=== PATIENT | female | born 2000 | race Caucasian/White ===

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

== ENCOUNTER 2019-03-22 14:55 | Emergency (ER) | payer BC ==
[2019-03-22 15:12] VITALS: BP 122/72
--- NOTE | 2019-03-22 15:23 | UC ---
Ear Complaint HPI - HPI Summary HPI Summary: Patient is a 19yo female presenting with c/o R ear pain and "feeling like ear needs to pop" x3 days. Patient notes decreased hearing in R ear. Notes getting over recent cold symptoms. Denies L ear pain. Denies drainage from the ear. Denies tinnitus. Denies nasal congestion. Denies cough and sore throat. Denies fever and chills. Notes history of recurrent ear infections with need for tubes b/l. - History of Current Complaint Chief Complaint: UCEar Stated Complaint: RIGHT EAR Hx Obtained From: Patient Hx Last Menstrual Period: 03/21/19 Onset/Duration: Gradual Onset, Lasting Days Severity Initially: Mild Severity Currently: Moderate Pain Intensity: 4 Pain Scale Used: 0-10 Numeric - Allergies/Home Medications Allergies/Adverse Reactions: Allergies Allergy/AdvReac Type Severity Reaction Status Date / Time No Known Allergies Allergy Verified 03/22/19 15:12 Home Medications: Home Medications Etonogest/Eth.estradiol (Nf) [Nuvaring Vaginal Ring] 1 each VAGINAL .SEE COMMENTS 03/22/19 [History Confirmed 03/22/19] FLUoxetine CAP* [PROzac CAP*] 20 mg PO DAILY 03/22/19 [History Confirmed ] Methylphenidate HCl [Concerta] 36 mg PO DAILY 03/22/19 [History Confirmed ] PMH/Surg Hx/FS Hx/Imm Hx Previously Healthy: Yes - Surgical History Surgical History: Yes Surgery Procedure, Year, and Place: APPENDECTOMY - Family History Known Family History: Positive: Cardiac Disease - Social History Alcohol Use: Occasionally Substance Use Type: None Smoking Status (MU): Never Smoked Tobacco Have You Smoked in the Last Year: No - Immunization History Most Recent Influenza Vaccination: NO 2017 Vaccination Up to Date: Yes Review of Systems All Other Systems Reviewed And Are Negative: Yes Constitutional: Positive: Negative ENT: Positive: Ear Ache - right. Negative: Sore Throat, Nasal Discharge, Sinus Congestion Respiratory: Positive: Negative Cardiovascular: Positive: Negative Neurological: Positive: Negative Physical Exam Triage Information Reviewed: Yes Appearance: Well-Appearing, No Pain Distress, Well-Nourished Vital Signs: Initial Vital Signs Temp 98.6 F 03/22/19 15:09 Pulse 99 03/22/19 15:09 Resp 15 03/22/19 15:09 BP 122/72 03/22/19 15:09 Pulse Ox 100 03/22/19 15:09 Vital Signs Reviewed: Yes Eyes: Positive: Conjunctiva Clear ENT: Positive: Hearing grossly normal, Pharynx normal, TM bulging - right, TM red - right, Uvula midline. Negative: Nasal congestion, Nasal drainage, Tonsillar swelling, Tonsillar exudate Neck exam: Normal Neck: Positive: Supple, Nontender, No Lymphadenopathy Respiratory Exam: Normal Respiratory: Positive: Lungs clear, Normal breath sounds, No respiratory distress Cardiovascular Exam: Normal Cardiovascular: Positive: RRR Neurological: Positive: Alert Psychological: Positive: Age Appropriate Behavior Ear Complaint Course/Dx - Course Course Of Treatment: I treated patient with Augmentin for AOM and instructed to follow up if symptoms persist or worsen. Patient voiced understanding and agreed with treatment plan. - Differential Dx/Diagnosis Provider Diagnosis: Otitis media of right ear Discharge ED - Sign-Out/Discharge Documenting (check all that apply): Patient Departure All imaging exams completed and their final reports reviewed: No Studies - Discharge Plan Condition: Stable Disposition: HOME Prescriptions: Amoxicillin/Clavulanate TAB* [Augmentin TAB 875*] 875 mg PO BID #14 tab Patient Education Materials: Ear Infection (ED) Referrals: [facility] [Outside] - If Needed Additional Instructions: Take Augmentin for the treatment of your ear infection. You may take over the counter pain medications as directed for pain relief. Follow up with the [facility] if symptoms do not resolve within 7 days. - Billing Disposition and Condition Condition: STABLE Disposition: Home
== END 2019-03-22 15:32 | disposition home or self-care (01) ==
LOC: UCCORT 14:55
DX: H66.91 Otitis media, unspecified, right ear (principal)
CPT/HCPCS: 99212; G0463

== ENCOUNTER 2019-08-20 12:41 | Emergency (ER) | payer BC ==
[2019-08-20 12:56] VITALS: BP 133/75
[2019-08-20] MEDS ORDERED: Azithromycin TAB* 250 MG PO ONE (13:01)
[2019-08-20] MEDS ORDERED: cefTRIAXone VIAL(*) 250 MG VIAL IM ONE (13:01)
[2019-08-20] MEDS ORDERED: Lidocaine 1% MPF ** 5 ML VIAL IM ONE (13:01)
--- NOTE | 2019-08-20 13:22 | UC ---
Complaint Female HPI - HPI Summary HPI Summary: 19-year-old female presents to urgent care requesting STI testing. Patient states that she heard from a third green party that one of her sexual partners had tested positive for chlamydia however she is noted sure if this is true. She most recently had unprotected sex with this partner 2 days ago. Last menstrual period was 08/09/2019. Patient is using the NuvaRing for contraception. Denies fever, chills, abdominal pain, pelvic pain, dysuria, frequency, urgency, hematuria, vaginal itching or discharge. - History Of Current Complaint Chief Complaint: UCSTDScreening Stated Complaint: PERSONAL Time Seen by Provider: 08/20/19 12:55 Hx Obtained From: Patient Hx Last Menstrual Period: 08/09/19 Pain Intensity: 0 - Allergies/Home Medications Allergies/Adverse Reactions: Allergies Allergy/AdvReac Type Severity Reaction Status Date / Time No Known Allergies Allergy Verified 08/20/19 12:56 Home Medications: Home Medications Etonogest/Eth.estradiol (Nf) [Nuvaring Vaginal Ring] 1 each VAGINAL .SEE COMMENTS 03/22/19 [History Confirmed 08/20/19] Methylphenidate HCl [Concerta] 36 mg PO DAILY PRN 03/22/19 [History Confirmed ] PMH/Surg Hx/FS Hx/Imm Hx Previously Healthy: Yes Psychological History: Other - ADHD - Surgical History Surgical History: Yes Surgery Procedure, Year, and Place: APPENDECTOMY - Family History Known Family History: Positive: Cardiac Disease - Social History Occupation: Student Lives: With Family Alcohol Use: Occasionally Substance Use Type: None Smoking Status (MU): Never Smoked Tobacco Have You Smoked in the Last Year: No - Immunization History Most Recent Influenza Vaccination: NO 2017 Vaccination Up to Date: Yes Review of Systems All Other Systems Reviewed And Are Negative: Yes Constitutional: Negative: Fever, Chills Skin: Negative: Rash Respiratory: Positive: Negative Cardiovascular: Positive: Negative Gastrointestinal: Negative: Abdominal Pain, Vomiting, Nausea Genitourinary: Negative: Dysuria, Hematuria, Frequency, Urgency, Vaginal/Penile Itching, Vaginal/Penile Discharge, Vaginal/Penile Pain, Vaginal/Penile Tenderness, Ulceration/Lesion, Abnormal Bleeding Musculoskeletal: Positive: Negative Neurological/Mental Status: Positive: Negative Is Patient Immunocompromised?: No Physical Exam - Summary Physical Exam Summary: GENERAL APPEARANCE: Well developed, well nourished, alert and cooperative, and appears to be in no acute distress. CARDIAC: Normal S1 and S2. No S3, S4 or murmurs. Rhythm is regular. There is no peripheral edema, cyanosis or pallor. Extremities are warm and well perfused. Capillary refill is less than 2 seconds. Peripheral pulses intact. LUNGS: Clear to auscultation without rales, rhonchi, wheezing or diminished breath sounds. ABDOMEN: Positive bowel sounds. Soft, nondistended, nontender. No guarding or rebound. No masses or hepatosplenomegally. No CVA tenderness. GENITOURINARY: Deferred by patient. MUSKULOSKELETAL: ROM intact to all extremities. No joint erythema or tenderness. Normal muscular development. Normal gait. SKIN: Skin normal color, texture and turgor with no lesions or eruptions. Triage Information Reviewed: Yes Vital Signs: Initial Vital Signs Temp 98.9 F 08/20/19 12:50 Pulse 70 08/20/19 12:50 Resp 16 08/20/19 12:50 BP 133/75 08/20/19 12:50 Pulse Ox 97 08/20/19 12:50 Vital Signs Reviewed: Yes Complaint Female Dx - Course Course Of Treatment: 19-year-old female presents to urgent care requesting STI testing. Patient states that she heard from a third green party that one of her sexual partners had tested positive for chlamydia however she is noted sure if this is true. She most recently had unprotected sex with this partner 2 days ago. Last menstrual period was 08/09/2019. Patient is using the NuvaRing for contraception. Denies fever, chills, abdominal pain, pelvic pain, dysuria, frequency, urgency, hematuria, vaginal itching or discharge. Afebrile. Vital signs stable. Patient's exam was overall unremarkable. Patient declined a pelvic exam at this time. [id number] urinalysis showed 1+ leukocyte esterase and trace lysed blood. A urine culture is pending. Urine was negative. Results were reviewed with the patient. A urine specimen was sent for gonorrhea and chlamydia testing. Patient declined any other STI testing. With the potential STI exposure I recommended empiric treatment to which the patient was agreeable. She received ceftriaxone 250 mg IM and azithromycin 1000 mg PO the clinic. Patient was counseled to abstain from sexual activity for one week and on safe sex practices. She is to return here or follow-up with her primary care as needed. Anticipatory guidance and warning symptoms are reviewed with the patient. Verbalizes understanding and agrees with plan of care. - Differential Dx/Diagnosis Differential Diagnosis/HQI/PQRI: Pelvic Inflammatory Disease, , Sexually Transmitted Disease, Urinary Tract Infection Provider Diagnosis: Exposure to chlamydia Discharge ED - Sign-Out/Discharge Documenting (check all that apply): Patient Departure All imaging exams completed and their final reports reviewed: No Studies - Discharge Plan Condition: Stable Disposition: HOME Patient Education Materials: Sexually Transmitted Diseases (ED), Safe Sex Practices (ED) Referrals: No Primary Care Phys,NOPCP [Primary Care Provider] - Additional Instructions: The urinalysis performed in the clinic today showed evidence of a possible urinary tract infection however this is unlikely since you are symptoms free. A urine culture has been sent to see if any bacteria grow out. The urine test was negative. We will send specimens to test for gonorrhea and chlamydia. It may take up to 72 hours to get these results. You have declined testing for any other sexually transmitted infections (STI) at this time. Since you were potentially exposed to an STI, we treated you with 2 different antibiotics (ceftriaxone and azithromycin) to treat for gonorrhea and chlamydia. You should abstain from ALL sexual activities for 1 week following treatment to avoid potentially infecting others. If you are going to be sexually active, it is important that you use some form of barrier contraceptive such as condoms consistently to help prevent exposure to STI's. Return here or follow up with your primary care provider as needed. Seek immediate medical attention in the emergency room if you develop fever greater than 100.5 F, have severe abdominal or pelvic pain, abnormal vaginal bleeding, or any new or concerning symptoms. - Billing Disposition and Condition Condition: STABLE Disposition: Home
[2019-08-21 12:57] LABS: Chlamydia trachomatis NAA Negative (Negative); Neisseria gonorrhoeae (GC) NAA Negative (Negative)
== END 2019-08-20 13:45 | disposition home or self-care (01) ==
LOC: UCCORT 12:41
DX: Z20.2 Contact with and (suspected) exposure to infections with a predominantly sexual mode of transmission (principal); Z32.02 Encounter for pregnancy test, result negative; F90.9 Attention-deficit hyperactivity disorder, unspecified type; Z79.899 Other long term (current) drug therapy
CPT/HCPCS: 81003; 84702; 87086; 87491; 87591; 96372; 99212; A9270-GY; G0463; J0696